=== PATIENT | female | born 1980 | race Caucasian/White ===

== ENCOUNTER 2017-07-20 12:23 | Emergency (ER) | payer MEDICAID, OTHER ==
[~2017-07-20] VITALS: Ht 167.6 cm; Wt 93.0 kg
[~2017-07-20 12:23] MED LIST: ACET325T14 PO; CEPH-368 PO; DOCU-131 PO; DOXY50SY PO; IBUP-1223 PO; None per pt.; ONDA4TAB13 PO; OXYC-302 PO; SIME80TA16 PO; SULF1TAB24 PO
[2017-07-20 13:27] LABS: HEMATOCRIT 45.6 % (34.6-47.8); HEMOGLOBIN 15.3 g/dL (11.7-16.4); WHITE BLOOD COUNT 8.4 x10^3/uL (3.4-10)
[2017-07-20 13:40] LABS: BLOOD UREA NITROGEN 6 mg/dL (7-18)
[2017-07-20 13:44] LABS: IS PT STATUS REG ER OR PRE ER? YES
[2017-07-20 15:00] VITALS: BP 138/85
[2017-07-20] MEDS ORDERED: KETOROLAC 30 MG/1 ML IM ONE (15:00)
== END 2017-07-20 16:08 | disposition home or self-care (01) ==
LOC: ED 16:03
DX: M94.0 Chondrocostal junction syndrome [Tietze] (principal)
CPT/HCPCS: 36415; 71020; 80048; 82040; 84484; 85025; 93005; 99285

== ENCOUNTER → 2018-01-19 | Outpatient (CLI) | payer MEDICAID | END | disposition home or self-care (01) | LOC: CFH 15:07 | PROVIDERS: ATTEND Physician Assistant | DX: M67.462 Ganglion, left knee (principal); M25.462 Effusion, left knee ==